=== PATIENT | female | born 1995 | race Caucasian/White ===

== ENCOUNTER 2017-07-03 18:20 | Emergency (ER) | payer BC ==
--- NOTE | 2017-07-03 19:16 | C.PDOC ---
History Of Present Illness 22 y/o female currently 7 weeks presents to ED with c/o headache, occasional vomiting and photophobia for 2 months. Patient reports pain on frontal scalp area and states pain is worse when bending over. Patient states she has pounding headache daily and reports nasal congestion, lymph nodes swollen and states she has taken Tylenol with no relief. Patient denies neck stiffness, fever, rash, abdominal pain, recent injury or any other complaints at this time. Chief Complaint (Nursing): Headache History Per: Patient History/Exam Limitations: no limitations Onset/Duration Of Symptoms: Days, Waxing/Waning Associated Symptoms: Photophobia, Vomiting Past Medical History Reviewed: Historical Data, Nursing Documentation, Vital Signs Vital Signs: Last Vital Signs Temp 98.2 F 07/03/17 20:22 Pulse 85 07/03/17 20:22 Resp 18 07/03/17 20:22 BP 118/76 07/03/17 20:22 Pulse Ox 99 07/03/17 20:22 - Medical History PMH: No Chronic Diseases Surgical History: No Surg Hx Family History: States: No Known Family Hx - Social History Hx Alcohol Use: No Hx Substance Use: No - Immunization History Hx Tetanus Toxoid Vaccination: No Hx Influenza Vaccination: No Hx Pneumococcal Vaccination: No Review Of Systems ENT: Positive for: Nose Congestion Cardiovascular: Negative for: Chest Pain Gastrointestinal: Positive for: Vomiting. Negative for: Abdominal Pain, Diarrhea Skin: Negative for: Rash Neurological: Positive for: Headache. Negative for: Weakness, Numbness Physical Exam - Physical Exam Appears: Non-toxic, No Acute Distress Skin: Warm, Dry, No Rash Head: Tenderness (Over frontal maxillary sinus on palpation), No Laceration Eye(s): bilateral: PERRL, EOMI Ear(s): Bilateral: Normal Oral Mucosa: Moist Throat: No Erythema, No Exudate, Other (Submandibular tender lymph nodes ) Neck: Normal ROM, Supple Chest: Symmetrical Cardiovascular: Rhythm Regular Respiratory: Normal Breath Sounds, No Rales, No Rhonchi, No Wheezing Extremity: Normal ROM, Capillary Refill (<2 seconds) Neurological/Psych: Oriented x3, Normal Speech, Normal Cognition, Normal Motor, Normal Sensation ED Course And Treatment O2 Sat by Pulse Oximetry: 100 (RA) Pulse Ox Interpretation: Normal Medical Decision Making Medical Decision Making: Impression: Cephalagia, migraine vs Sinusitis Plan: Medical options limited secondary to early . Tylenol and Compazine administered Patient refuse Compazine, will provide medication for Sinusitis and d/c patient with f.u to OBGYN Disposition - Disposition Referrals: [facility] at [facility] [Outside] Disposition: HOME/ ROUTINE Disposition Time: 04:39 Condition: FAIR Prescriptions: Amoxicillin 500 mg PO TID #21 tablet Instructions: Sinusitis in Adults, Migraine Headache (DC) Forms: [facility] (Occitan), Work Excuse Print Language: CHADIAN - Clinical Impression Clinical Impression: Headache, Sinusitis - Scribe Statement The provider has reviewed the documentation as recorded by the Scribe Faisal Hopson All medical record entries made by the Coriibesteban were at my direction and personally dictated by me. I have reviewed the chart and agree that the record accurately reflects my personal performance of the history, physical exam, medical decision making, and the department course for this patient. I have also personally directed, reviewed, and agree with the discharge instructions and disposition.
[2017-07-03 20:23] VITALS: BP 118/76; PULSE 85; RESP 18; TEMP 98.2
[2017-07-04 04:40] VITALS: O2SAT 100
== END 2017-07-03 20:24 | disposition home or self-care (01) ==
LOC: C.ER 18:20
DX: O26.891 Other specified pregnancy related conditions, first trimester (principal); Z3A.01 Less than 8 weeks gestation of pregnancy; R51 Headache; J32.9 Chronic sinusitis, unspecified

== ENCOUNTER 2017-09-17 14:53 | Emergency (ER) | payer BC ==
[2017-09-17 15:36] VITALS: TEMP 98.4
[2017-09-17 15:52] LABS: SQUAMOUS EPITHIAL 3 /hpf (0-5); URINE BACTERIA OCC (<OCC); URINE BILIRUBIN NEGATIVE (NEGATIVE); URINE BLOOD NEGATIVE (NEGATIVE); URINE CLARITY Clear (Clear); URINE COLOR Yellow (YELLOW); URINE GLUCOSE (UA) NORMAL (Normal); URINE LEUKOCYTE ESTERASE TRACE Leu/uL (Negative); URINE PROTEIN NEGATIVE (NEGATIVE); URINE UROBILINOGEN NORMAL mg/dL (0.2-1.0)
[2017-09-17 15:53] LABS: HCG,QUALITATIVE URINE POSITIVE (NEGATIVE)
[2017-09-17 16:35] LABS: BASO % 0.2 % (0.0-2.0); EOS % 0.3 % (0.0-4.0); HEMOGLOBIN 12.2 g/dL (11.0-16.0); LYMPH # 2.4 K/uL (1.0-4.3); LYMPH % 18.3 % (20.0-40.0); MEAN CELL VOLUME 88.5 fL (81.0-99.0); MEAN CORPUSCULAR HEMOGLOBIN 29.5 pg (27.0-31.0); MEAN CORPUSCULAR HGB CONC 33.3 g/dL (33.0-37.0); MEAN PLATELET VOLUME 9.3 fL (7.2-11.7); MONO # 0.8 K/uL (0.0-0.8); MONO % 6.3 % (0.0-10.0); NEUT % 74.9 % (50.0-75.0); RBC 4.12 Mil/uL (3.80-5.20); RED CELL DISTRIBUTION WIDTH 14.6 % (11.5-14.5); WHITE BLOOD COUNT 13.3 K/uL (4.8-10.8)
[2017-09-17 16:58] LABS: ALB/GLOB RATIO 1.4 (1.0-2.1); ALBUMIN 4.6 g/dL (3.5-5.0); ALT/SGPT 42 U/L (9-52); AST/SGOT 36 U/L (14-36); BLOOD UREA NITROGEN 6 mg/dL (7-17); CALCIUM 9.4 mg/dl (8.6-10.4); GFR AFRICAN-AMERICAN > 60; GFR NON-AFRICAN AMERICAN > 60; LIPASE 48 U/L (23-300)
[2017-09-17] MEDS ORDERED: Sodium Chloride 0.9% 1,000 ML IV ONE (17:01)
[2017-09-17] MEDS ORDERED: Sodium Chloride 0.9% 1,000 ML ONE (17:31)
--- NOTE | 2017-09-17 18:02 | US ---
HISTORY: Abdominal pain. COMPARISON: None. TECHNIQUE: Sonographic evaluation of the abdomen. FINDINGS: LIVER: Measures 15.5 cm. Patent portal vein. Portal venous flow: Hepatopetal. Unremarkable echogenicity of the liver parenchyma. No mass. No intrahepatic bile duct dilatation. GALLBLADDER: Unremarkable. No gallstones. COMMON BILE DUCT: Measures 4.1 mm. No stones. No dilatation. PANCREAS: Unremarkable as visualized. No mass. No ductal dilatation. RIGHT KIDNEY: Measures 4.3 x 12.1cm. Normal echogenicity. No calculus, mass, or hydronephrosis. LEFT KIDNEY: Measures 5.1 x 10.8cm. Normal echogenicity. No calculus, mass, or hydronephrosis. SPLEEN: Normal in size and contour. No mass. AORTA: No aneurysmal dilatation. IVC: Unremarkable. OTHER FINDINGS: None. IMPRESSION: Unremarkable abdominal sonogram.
--- NOTE | 2017-09-17 18:11 | US ---
Date of service: 09/17/2017 PROCEDURE: The , limited HISTORY: Abdominal pain. COMPARISON: None available. TECHNIQUE: A double-J stent catheter appears in satisfactory position on the . Proximal aspect coiled in the collecting system and the distal end coiled in the bladder. FINDINGS: Cephalic presentation. Anterior Placenta. No evidence of abruption or previa Gestational age derived from LMP 17 weeks 4 days. DANIELLA 02/21/2018. Gestational age derived from the following biometric parameters 18 weeks 2 days. DANIELLA 02/26/2018 Biparietal diameter 4.25 cm Head circumference 16.0 cm Abdominal circumference 11.69 cm Femur length 2.57 cm Estimated weight 208 g Calculated cardiac rate 129 beats per min. Closed cervix measuring 2.98 cm IMPRESSION: Eighteen weeks 2 days live intrauterine gestation. Gestational concordance documented. Closed cervix measures 2.98 cm.
[2017-09-17 18:30] VITALS: BP 127/80; PULSE 102; RESP 17
--- NOTE | 2017-09-17 18:34 | C.PDOC ---
History Of Present Illness 22-year-old female (18-weeks, ), presents to the emergency department with complaints of diffuse abdominal pain, associated with nausea and non-bloody/non-bilious vomiting, that started last night. Patient had two episodes of vomiting today. She denies any vaginal discharge/bleeding, dysuria, back pain or any other associated symptoms. Time Seen by Provider: 09/17/17 15:31 Chief Complaint (Nursing): Abdominal Pain History Per: Patient History/Exam Limitations: no limitations Current Symptoms Are (Timing): Still Present Severity: Moderate Past Medical History Vital Signs: Last Vital Signs Temp 98.4 F 09/17/17 18:29 Pulse 102 H 09/17/17 18:29 Resp 17 09/17/17 18:29 BP 127/80 09/17/17 18:29 Pulse Ox 98 09/17/17 19:00 Family History: States: Unknown Family Hx - Social History Hx Alcohol Use: No Hx Substance Use: No - Immunization History Hx Tetanus Toxoid Vaccination: No Hx Influenza Vaccination: No Hx Pneumococcal Vaccination: No Review Of Systems Constitutional: Negative for: Fever, Chills Cardiovascular: Negative for: Chest Pain, Palpitations Respiratory: Negative for: Shortness of Breath Gastrointestinal: Positive for: Nausea, Vomiting, Abdominal Pain. Negative for : Diarrhea Genitourinary: Negative for: Dysuria, Frequency, Hematuria, Vaginal Discharge, Vaginal Bleeding, Pelvic Pain Skin: Negative for: Rash Neurological: Negative for: Weakness, Numbness Physical Exam - Physical Exam Appears: Non-toxic, No Acute Distress Skin: Normal Color, Warm, Dry, No Rash Head: Atraumatic, Normacephalic Eye(s): bilateral: Normal Inspection, PERRL, EOMI Nose: Normal Oral Mucosa: Moist Lips: Normal Appearing Neck: Normal ROM, Supple Chest: Symmetrical Cardiovascular: Rhythm Regular Respiratory: Normal Breath Sounds Gastrointestinal/Abdominal: Soft, Tenderness (diffuse), No Guarding, No Rebound , Other (appropriate with dates) Back: Normal Inspection Extremity: Normal ROM, No Deformity, No Swelling Neurological/Psych: Oriented x3, Normal Speech ED Course And Treatment - Laboratory Results Result Diagrams: 09/17/17 16:29 09/17/17 16:29 O2 Sat by Pulse Oximetry: 98 - CT Scan/US US Other Rad Studies (CT/US): Read By Radiologist, Radiology Report Reviewed CT/US Interpretation: Accession No. : [id number]. Patient Name / ID : ANAMARIA VERDIN / [id number]. Exam Date : 09/17/2017 17:04:37 ( Approved ). Study Comment : Sex / Age : F / 22Y. Creator : Angelito Curiel MD. Dictator : Angelito Curiel MD. Ton Container Shipper : Counter Hand : Angelito Curiel MD. Approver2 : Report Date : 09/17/2017 18:00:57. My Comment : . HISTORY: Abdominal pain. COMPARISON: None. TECHNIQUE: Sonographic evaluation of the abdomen. FINDINGS: LIVER: Measures 15.5 cm. Patent portal vein. Portal venous flow: Hepatopetal. Unremarkable echogenicity of the liver parenchyma. No mass. No intrahepatic bile duct dilatation. GALLBLADDER: Unremarkable. No gallstones. COMMON BILE DUCT: Measures 4.1 mm. No stones. No dilatation. PANCREAS: Unremarkable as visualized. No mass. No ductal dilatation. RIGHT KIDNEY: Measures 4.3 x 12.1cm. Normal echogenicity. No calculus, mass, or hydronephrosis. LEFT KIDNEY: Measures 5.1 x 10.8cm. Normal echogenicity. No calculus, mass, or hydronephrosis. SPLEEN: Normal in size and contour. No mass. AORTA: No aneurysmal dilatation. IVC: Unremarkable. OTHER FINDINGS: None. IMPRESSION: Unremarkable abdominal sonogram. Progress Note: On re-evaluation, pt notes pain improved. Mild diffuse tenderness. Discussed with pt no appendix seen on US and additional US ordered. Pt notes that she feels better and requests discharge. Notes she will f /u with her doctor tomorrow and will return to ER if symptoms return. Pt tolerating PO. Afebrile. No vaginal bleeding or discharge. CAse discussed with Dr Moeller, who evlauated work up and agreed upon plan and treatment. Against Medical Advice - AMA Patient Left Against Medical Advice: The patient declines admission to the hospital and wishes to leave the Emergency Department. This action is against my medical advice. This decision was made with informed refusal. The patient was told that admission to the hospital is necessary. Explanation of the reasons why were discussed. The risks of leaving were explained to the patient and include, but are not limited to, worsening of known or currently unknown conditions, permanent disability and from undiagnosed or untreated conditions. The patient has the capacity to make this informed decision and understands my explanation of the current medical problem and risks of leaving. The patient voluntarily accepts these risks and signed an AMA form documenting our conversation. The patient was given the opportunity to ask questions and reconsider. The patient was encouraged to return to the Emergency Department at any time for further care. Disposition - Disposition Referrals: Neyda Austin MD [Staff Provider] - Disposition: HOME/ ROUTINE Disposition Time: 18:34 Condition: STABLE Additional Instructions: Follow up with your PMD in 1-2 days . Return to ER if symptoms persist or worsen. Instructions: Acute Abdomen (Belly Pain), Adult (DC) Forms: [employer] (Vietnamese), (AMA) Informed Refusal - Clinical Impression Clinical Impression: Abdominal pain, - Scribe Statement The provider has reviewed the documentation as recorded by the Scribe (Lise Nash) All medical record entries made by the Scribe were at my direction and personally dictated by me. I have reviewed the chart and agree that the record accurately reflects my personal performance of the history, physical exam, medical decision making, and the department course for this patient. I have also personally directed, reviewed, and agree with the discharge instructions and disposition.
[2017-09-17 18:35] VITALS: O2SAT 98
== END 2017-09-17 18:52 | disposition home or self-care (01) ==
LOC: C.ER 14:53
DX: O26.892 Other specified pregnancy related conditions, second trimester (principal); R10.9 Unspecified abdominal pain; Z3A.18 18 weeks gestation of pregnancy
CPT/HCPCS: 76700; 76815; 80053; 81001; 83690; 84703; 85025; 96360; 99285; J2765; J7030

== ENCOUNTER 2018-01-25 15:23 | Emergency (ER) | payer BC ==
--- NOTE | 2018-01-25 16:31 | OBHP ---
Datetime: 01/25/2018 15:40 IP Adm Impression: , intrauterine ; No Active Labor; Intact Membranes IP Admit Plan: Observation/Evaluation; Discharge home Admit Comment, IP Provider: AbbiC: sore throat, loss of appetite 22 y/o @ 36+4 weeks with DANIELLA 02/18/18 LMP 05/11/17 presents with chronic sore throat, cough, l oss of appetite, discomfort while swallowing for many weeks. Patient received 3 days of amoxicillin f or her chronic tosillitis which did not relieve her symptoms. follows with private medical doctor. This is complicated with GDM, diagnosed during second trimester. She has a diary log for her BG. Her fasting BG aroung 100-110, 1 hour post prandial around 140s. She tried life style modifi cation that failed to control her GDM. She will see MFM next week. Patient denied VB, VD, LOF. Admits to movement. Patient denied chest pain, hemoptysis OBHx: first , no abortions or miscarriages. GynHx: does not remember her menarche, has irregular periods, no h/o financial aid administrator disease PMH: hyperthyroidism (not on any meds) PSH: none FH: non contributory Meds: tylenol, PNV ALL: NKDA A/P 22 y/o @ 36+4 weeks sore throat Vitals stable. afebrile Finger stick 71 monitoring within normal limits encouraged patient to follow up with private medical doctor for further treatment continue regular OB visits, MFM follow up labor precautions discussed Bayron Watkins DO, PGY1 Case discussed and reviewed with attending Dr. Nieves Austin -- I have personally examined the patient with Dr. Watkins and agree with documentation and plan Extremities - PN: Normal Abdomen - PN: Normal Lungs - PN: Normal Heart - PN: Normal HEENT - PN: Abnormal General - PN: Normal FHR - Baseline A Provider: 145-150 Membranes, Provider: Intact Comments, ACOG Physical Exam: Gen: NAD HEENT: b/l tosil enlargement. pharyngeal erthema. no exudate. b/l submandibular lymphadenopathy. Heart: S1,S2, RRR Lung: CTA, B/L Abd: gravid, soft, non tender EGA AdmitDate IP: 36.4 Vital Signs Provider: Reviewed; Within Normal Limits IP Chief Complaint: Illness; Maternal discomfort NICHD Variability Prov Fetus A: Moderate 6-25bpm NICHD Accel Fetus A IP Provider: 15X15 FHR Category Provider Fetus A: Category I NICHD Decel Fetus A IP Provider: None Dilatation, Provider: 0 Effacement, Provider: 0 Station, Provider: -3
[2018-01-26 00:02] VITALS: BP 127/72; PULSE 131; RESP 20; O2SAT 97
== END 2018-01-25 16:50 | disposition home or self-care (01) ==
LOC: C.EROB 15:23
DX: O99.513 Diseases of the respiratory system complicating pregnancy, third trimester (principal); J02.9 Acute pharyngitis, unspecified; Z3A.36 36 weeks gestation of pregnancy

== ENCOUNTER 2018-02-04 19:10 | Inpatient (IN) | payer BC ==
[2018-02-04 20:50] VITALS: BMI 31.9
[2018-02-04] MEDS ORDERED: Lactated Ringer's 1,000 ML IV SCH (22:15)
[2018-02-04] MEDS ORDERED: Lactated Ringer's 1,000 ML IV ONE (22:15)
[2018-02-04 22:52] LABS: BASO % 0.3 % (0.0-2.0); EOS # 0.1 K/uL (0.0-0.7); EOS % 0.5 % (0.0-4.0); LYMPH # 2.1 K/uL (1.0-4.3); LYMPH % 15.4 % (20.0-40.0); MEAN CELL VOLUME 84.3 fL (81.0-99.0); MEAN CORPUSCULAR HGB CONC 33.2 g/dL (33.0-37.0); MONO # 0.9 K/uL (0.0-0.8); MONO % 6.9 % (0.0-10.0); NEUT # 10.4 K/uL (1.8-7.0); NEUT % 76.9 % (50.0-75.0); NRBC % 0.1 % (0.0-2.0); RBC 3.94 Mil/uL (3.80-5.20); RED CELL DISTRIBUTION WIDTH 14.7 % (11.5-14.5); WHITE BLOOD COUNT 13.6 K/uL (4.8-10.8)
[2018-02-04 22:57] LABS: SQUAMOUS EPITHIAL 10 /hpf (0-5); URINE BACTERIA FEW (<OCC); URINE BILIRUBIN NEGATIVE (NEGATIVE); URINE BLOOD NEGATIVE (NEGATIVE); URINE CLARITY Clear (Clear); URINE COLOR Yellow (YELLOW); URINE GLUCOSE (UA) NORMAL (Normal); URINE LEUKOCYTE ESTERASE TRACE Leu/uL (Negative); URINE PROTEIN 1+ mg/dL (NEGATIVE); URINE UROBILINOGEN NORMAL mg/dL (0.2-1.0)
[2018-02-05 03:06] LABS: ALB/GLOB RATIO 1.1 (1.0-2.1); ALBUMIN 3.7 g/dL (3.5-5.0); BLOOD UREA NITROGEN 18 mg/dL (7-17); CALCIUM 9.1 mg/dl (8.6-10.4); GFR NON-AFRICAN AMERICAN > 60
--- NOTE | 2018-02-05 03:09 | OBHP ---
Datetime: 02/04/2018 19:34 IP Adm Impression: Term, intrauterine ; No Active Labor; Intact Membranes IP Admit Plan: Admit to unit; Initiate labor induction protocol Admit Comment, IP Provider: 22 yo female G1 with an IUP at 38.4 weeks and sent from [facility] office for e valuation. Pt has GDM and is poorly controlled. Denied LOF, VB, VD and admits to adequate FM. No PNC records available. Also c/o's of irregular contractions. PMHx and PSHx Negative NKDA Medications PNV Social HX Negative x 3 A/P 1. Term 2. Not in Active Labor 3. Uncontrolled GD 4. GBS Negative Will admit per Dr. Austin and for induction of labor seconday to uncontrolled Diabetes Dr. Austin requesed a cervidil NST reactive Admit labs ordered Pt aware of POC and verbalized uderstanding and agreed Pelvic Type - PN: Adequate Extremities - PN: Normal Abdomen - PN: Normal Back - PN: Normal Breast - PN: Not Done Lungs - PN: Normal Heart - PN: Normal Thyroid - PN: Normal Neurologic - PN: Normal HEENT - PN: Normal General - PN: Normal Presentation-Admit: Vertex FHR - Baseline A Provider: 150 Membranes, Provider: Intact Contraction Comments Provider: Irregular and mild Gestation - Est Wks by US: 38.4 IP Hx Assessment: scanty records available EGA AdmitDate IP: 38.0 Vital Signs Provider: Reviewed; Within Normal Limits IP Chief Complaint: Maternal discomfort; evaluation NICHD Variability Prov Fetus A: Moderate 6-25bpm NICHD Accel Fetus A IP Provider: 10X10 FHR Category Provider Fetus A: Category I NICHD Decel Fetus A IP Provider: None Dilatation, Provider: 2 Effacement, Provider: 50 Station, Provider: -3 Genitourinary Exam: Normal DTRs - PN: Normal
[2018-02-05 03:18] LABS: ALT/SGPT 30 U/L (9-52); AST/SGOT 38 U/L (14-36)
--- NOTE | 2018-02-05 03:35 | OBPN ---
Datetime: 02/05/2018 01:18 IP Progress Impression: Reassuring heart rate IP Informed Consent Obtain: Vaginal Delivery IP Procedures: Sterile Vag Exam IP Progress Plan: Cervical Ripening Membranes, Provider: Intact Contraction Comments Provider: Irregular and mild FHR - Baseline A Provider: 120 Gestation - Est Wks by US: 38.1 Presentation-Admit: Vertex IP Progress Note Comment: Pt seen and examined Last BS 115 at 2200 and will repeat Q 4 hrs SVE unchanged from admission and Cervidil placed/Cervix very posterior Pt very apprehensive about pelvic exams and makes it very difficult Morbid Obesity also limits adequate examination Continue close moitoring and Anticipate Vaginal Delivery Vital Signs Provider: Reviewed; Within Normal Limits NICHD Accel Fetus A IP Provider: 15X15 NICHD Variability Prov Fetus A: Moderate 6-25bpm Dilatation, Provider: 2 Effacement, Provider: 50 Station, Provider: -3 NICHD Decel Fetus A IP Provider: None Datetime: 02/04/2018 19:34 FHR Category Provider Fetus A: Category I
[2018-02-05] MEDS ORDERED: Bupivacaine HCl/FentaNYL Cit 100 ML EPI ONE ×2 (03:41→09:01)
--- NOTE | 2018-02-05 03:49 | OBPN ---
Datetime: 02/05/2018 03:35 IP Progress Impression Other: Gestational Diabetes-Uncontrolled IP Informed Consent Obtain: Vaginal Delivery IP Procedures: Sterile Vag Exam IP Progress Plan: Continue present management FHR - Baseline A Provider: 150 Gestation - Est Wks by US: 38.1 Presentation-Admit: Vertex Vital Signs Provider: Reviewed NICHD Accel Fetus A IP Provider: 15X15 NICHD Variability Prov Fetus A: Moderate 6-25bpm Dilatation, Provider: 2 Effacement, Provider: 50 Station, Provider: -3 NICHD Decel Fetus A IP Provider: None Datetime: 02/05/2018 01:18 IP Progress Note Comment: Pt seen and examined Last BS 115 at 2200 and will repeat Q 4 hrs SVE unchanged from admission and Cervidil placed/Cervix very posterior Pt very apprehensive about pelvic exams and makes it very difficult Morbid Obesity also limits adequate examination Pt complaint of Migraine VALENCIA's since begining of and has one right now. 25 mg of Imitrex given Also requested some help to be able to sleep and 25 mg of Ambien ordered. Continue close monitoring and Anticipate Vaginal Delivery
--- NOTE | 2018-02-05 05:31 | OBPN ---
Datetime: 02/05/2018 05:06 IP Progress Impression: Normal progression of labor IP Informed Consent Obtain: Vaginal Delivery IP Procedures: Artificial ROM; Intrauterine Pressure Catheter; Scalp Electrode; Sterile Vag Ex am; Epidural Placement IP Progress Plan: Continue present management; Induction; Antibiotic therapy Membranes, Provider: Ruptured Amniotic Fluid Color, Provider: Clear FHR - Baseline A Provider: 160 Gestation - Est Wks by US: 38.1 Presentation-Admit: Vertex IP Progress Note Comment: Pt seen and examined Epidural in place and pt tolerated it well AROM with return of clear fluid IUPC and ISL placed and FHT's 148 UCC up to 40 mmHg Cervidil removed Will start Pitocin for IOL if neccesaryg Anticipate a vaginal delivery Vital Signs Provider: Reviewed; Within Normal Limits NICHD Accel Fetus A IP Provider: 15X15 NICHD Variability Prov Fetus A: Moderate 6-25bpm Dilatation, Provider: 4 Effacement, Provider: 90 Station, Provider: -2 NICHD Decel Fetus A IP Provider: None (Annotations: Data stored by CPN on behalf of user)
[2018-02-05] MEDS ORDERED: Bupivacaine HCl 0.5% PF (30 ml) Inj ONE (08:12)
[2018-02-05] MEDS ORDERED: Lidocaine 2% MPF (5 ml) Inj ONE ×3 (08:12→13:58)
[2018-02-05] MEDS ORDERED: Oxytocin 30 UNIT 30 UNITS/500 ML BAG IV SCH (11:00)
[2018-02-05] MEDS ORDERED: Oxytocin 30 UNIT 30 UNITS/500 ML BAG IV ONE (11:04)
--- NOTE | 2018-02-05 14:10 | OBPN ---
Datetime: 02/05/2018 14:05 IP Progress Impression: Normal progression of labor IP Progress Plan: Continue present management IP Progress Note Comment: pt seen enxa iend c/o pain s/p epdira vss ve; /-2 arom celar pti 6 mu/min efm; cat i tooc; q 2- 3min a/p @ 38.1 wks GA IOL for GMDA2, anestheis cont current paitemtn
[2018-02-05] MEDS ORDERED: Benzocaine/Menthol 20%-0.5% Topical Spray (60 ml) TOP PRN (15:07)
--- NOTE | 2018-02-05 15:16 | OBDS ---
MATERNAL INFORMATION Provider Comments: pt was fullyd ilated adn pushing. atrumatic, spontaneou delivery of head. atrumat ic, spontaneou delivery of anterior followed by posteror shoulder followed by delivery of body. both oral and nasal passages of the baby were bulb suctioned. umbilcal cord was clamped and cut. baby hand ed to awaiting social service worker. Cord blood and cord gases colelcted and sent x 2. Spontaneous delivery o f intact placenta with membarnes. fundus firm. good hemostaisis. second degree pereinal lacerationed noted adn repaired with 2-0 and 3-0 chromic. Good hemostais, no compicatosn live male ifnat cephalic presentation ebl 300ml weight of 7lb 11 ounces apgsr 9,9 LABOR SUMMARY EDC: 02/18/2018 00:00 LABOR INFORMATION Cervical Ripening Agents: Cervidil Group B Beta Strep: Negative MEMBRANES Membranes Rupture Method: Artificial Amniotic Fluid Color: Clear Amniotic Fluid Amount: Moderate Amniotic Fluid Odor: Normal STAGES OF LABOR Stage 3 hrs: 0 Stage 3 min: 11 BABY A INFORMATION Delivery Date/Time: 02/05/2018 14:54 Method of Delivery: Vaginal Born in Route : No : N/A Forceps: N/A Vacuum Extraction: N/A Shoulder Dystocia : No SHOULDER DYSTOCIA BABY A Delivery Date/Time: 02/05/2018 14:54 PRESENTATION/POSITION BABY A Presentation: Cephalic Cephalic Presentation: Vertex Vertex Position: Right Occipital Anterior Breech Presentation: N/A PLACENTA INFORMATION BABY A Placenta Delivery Time : 02/05/2018 15:05 Placenta Method of Delivery: Expressed Placenta Status: Delivered SCORES BABY A Heart Rate 1 min: >100 bpm Resp Effort 1 min: Good Cry Reflex Irritability 1 min: Cough or Sneeze or Pulls Away Muscle Tone 1 min: Active Motion Color 1 min: Body Martin, Extremities Blue Resuscitation Effort 1 min: Tactile Stimulation SCORE 1 MIN: 9 Heart Rate 5 min: >100 bpm Resp Effort 5 min: Good Cry Reflex Irritability 5 min: Cough or Sneeze or Pulls Away Muscle Tone 5 min: Active Motion Color 5 min: Body Martin, Extremities Blue Resuscitation Effort 5 min: N/A SCORE 5 MIN: 9 INFORMATION BABY A Gestational Age at Delivery: 38.1 Gestational Status: Term Outcome : Liveborn Infant Condition : Stable Sex: Male IDENTIFICATION/MEDS BABY A ID Band Number: [id number] Sensor Number: [id number] WEIGHT/LENGTH BABY A Infant Birthweight (gms): 3500 Weight (lb): 7 Weight (oz): 11 Infant Length Inches: 20.25 Infant Length cms: 51.4 CORD INFORMATION BABY A No. Cord Vessels: 3 Nuchal Cord : N/A Suction: Mouth; Nose ASSESSMENT BABY A Complications: None Physical Findings at Delivery: Within Normal Limits Respirations: Appears Normal Commercial Lease Administrator/ALS Called : No Care By: Isela Sharpe RN Transferred To: Remains with Mother
[2018-02-05] MEDS: Oxycodone/Acetaminophen 5/325 mg Tab PO PRN (22:47)
[2018-02-06 07:21] LABS: BASO % 0.2 % (0.0-2.0); EOS # 0.1 K/uL (0.0-0.7); EOS % 0.7 % (0.0-4.0); LYMPH # 3.2 K/uL (1.0-4.3); LYMPH % 20.4 % (20.0-40.0); MEAN CELL VOLUME 83.9 fL (81.0-99.0); MEAN CORPUSCULAR HEMOGLOBIN 27.6 pg (27.0-31.0); MEAN CORPUSCULAR HGB CONC 32.9 g/dL (33.0-37.0); MEAN PLATELET VOLUME 9.3 fL (7.2-11.7); MONO # 1.5 K/uL (0.0-0.8); MONO % 9.4 % (0.0-10.0); NEUT # 10.9 K/uL (1.8-7.0); NEUT % 69.3 % (50.0-75.0); RBC 3.22 Mil/uL (3.80-5.20); RED CELL DISTRIBUTION WIDTH 14.8 % (11.5-14.5); WHITE BLOOD COUNT 15.8 K/uL (4.8-10.8)
[2018-02-06 07:33] LABS: HEMOGLOBIN 8.9 g/dL (11.0-16.0)
[2018-02-06] MEDS: Oxycodone/Acetaminophen 5/325 mg Tab PO PRN ×2 (12:03→20:55)
--- NOTE | 2018-02-06 22:46 | OBPPN ---
Datetime: 02/06/2018 12:25 PP Pain Prov: Within normal limits PP Nausea Prov: Denies PP Flatus Prov: Yes PP Breasts Prov: Not Done PP Heart Prov: Normal PP Lungs Prov: Normal PP Abdomen/Uterus Prov: Normal PP Lochia Prov: Normal PP Vulva/Perineum Prov: Normal PP CVA Tenderness Prov: Normal PP Extremities Prov: Normal PP C/S Incision Prov: Not Applicable PP Comments Phys Exam Prov: Fundus below Umbilicus, firm and non-tender PP Impression Prov: Normal progression PP Plan Prov: Continue present management PP Progress Note Prov: PPD # 1 S/P PP H_H 8.9/27.0 / Asymptomatic / A+ Stable and Satisfactory condition and recovery Advance care Anticipate D/S home in AM IP PP Procedures: None
[2018-02-07] MEDS: Oxycodone/Acetaminophen 5/325 mg Tab PO PRN (00:41)
[2018-02-07 08:32] LABS: BASO % 0.2 % (0.0-2.0); EOS # 0.2 K/uL (0.0-0.7); EOS % 1.5 % (0.0-4.0); HEMOGLOBIN 9.2 g/dL (11.0-16.0); LYMPH # 1.8 K/uL (1.0-4.3); LYMPH % 13.8 % (20.0-40.0); MEAN CELL VOLUME 84.7 fL (81.0-99.0); MEAN CORPUSCULAR HEMOGLOBIN 27.7 pg (27.0-31.0); MEAN CORPUSCULAR HGB CONC 32.7 g/dL (33.0-37.0); MONO # 0.8 K/uL (0.0-0.8); MONO % 6.6 % (0.0-10.0); NEUT # 9.9 K/uL (1.8-7.0); NEUT % 77.9 % (50.0-75.0); NRBC % 0.1 % (0.0-2.0); RBC 3.34 Mil/uL (3.80-5.20); RED CELL DISTRIBUTION WIDTH 14.7 % (11.5-14.5); WHITE BLOOD COUNT 12.7 K/uL (4.8-10.8)
[2018-02-07 08:50] VITALS: BP 119/78; PULSE 119; RESP 20; TEMP 97.5; O2SAT 97
--- NOTE | 2018-02-07 12:33 | OBPPN ---
Datetime: 02/07/2018 12:28 PP Pain Prov: Within normal limits PP Nausea Prov: Denies PP Flatus Prov: Yes PP BM Prov: Yes PP Breasts Prov: Normal PP Heart Prov: Normal PP Lungs Prov: Normal PP Abdomen/Uterus Prov: Normal PP Lochia Prov: Normal PP Vulva/Perineum Prov: Normal PP CVA Tenderness Prov: Normal PP Extremities Prov: Normal PP C/S Incision Prov: Not Applicable PP Progress Prov: Normal PP Impression Prov: Normal progression PP Plan Prov: Discharge PP Progress Note Prov: pt seen and examined and reports pain controlled with medication. pt ambulati ng, voiding, passing flatus, toerlated reguar diet, no fever, chills, nausea, vomiting. Pt deneis any dizynes, chest pain, sob. VS see above PE GEN NAD AAO x 3 RESP: CTAB/l CVS: RRR,+S1/S2 ABD: Soft, NT/ND, +BS. no guarding no rebound tenderness no rigidity FUNDU: Firm, belwo level of umbilicus, non tender VE: minimal lochia, non fousl smelling LE: negative homans sign s/p ppd #2 with acute asympomatic blood loss anemia dc home rto 6 week precautins: if fever, heavy bleedign more than 2 pads/ hour, lightheadness, dizzynes, chest pain, sob, go to ER adn call IP PP Procedures: None Vital Signs Provider PP: Reviewed
--- NOTE | 2018-02-07 12:33 | OBDCSUM ---
Datetime: 02/07/2018 10:37 Discharged to, Provider: Home Follow up at, Provider: Dr. Austin Disch Instr Activity: Normal activity Disch Instr Diet: Regular Discharge Instructions, Provider: Routine instructions given Discharge Diagnosis, Provider: Term Delivered Discharge Time: 02/07/2018 12:00 Follow up in weeks, Provider: 6 weeks Disch Referrals: None Contraception discussed, Prov: Yes Disch Activity Restrictions: No sexual activity; Nothing in vagina - [place], tampons, douche Discharge Comment, Provider: precautins given Contraception after Delivery: Not Planning to Use
== END 2018-02-07 12:24 | disposition home or self-care (01) | DRG 807 ==
LOC: C.EROB 19:10 → C.4D 20:45 → C.4M 02-05 17:20
PROVIDERS: ADMIT Obstetrics & Gynecology; ATTEND Obstetrics & Gynecology
PROC: 10E0XZZ Delivery of Products of Conception, External Approach (ICD-10-PCS; principal; 2018-02-05)
PROC: 0KQM0ZZ Repair Perineum Muscle, Open Approach (ICD-10-PCS; 2018-02-05)
PROC: 3E0P7VZ Introduction of Hormone into Female Reproductive, Via Natural or Artificial Opening (ICD-10-PCS; 2018-02-05)
DX: O24.429 Gestational diabetes mellitus in childbirth, unspecified control (principal); Z37.0 Single live birth; O70.1 Second degree perineal laceration during delivery; Z3A.38 38 weeks gestation of pregnancy